=== PATIENT | male | born 1995 | race Caucasian/White ===

== ENCOUNTER 2020-01-26 04:03 | Emergency (ER) | payer BC ==
[2020-01-26] MEDS ORDERED: FLUO10CA14 PO (05:38)
== END 2020-01-26 04:19 | disposition left against medical advice (07) ==
LOC: ER 04:03
DX: R45.851 Suicidal ideations (principal); Z53.21 Procedure and treatment not carried out due to patient leaving prior to being seen by health care provider

== ENCOUNTER 2020-01-26 04:39 | Inpatient (IN) | payer BC ==
[~2020-01-26] VITALS: Ht 180.3 cm; Wt 91.0 kg
[2020-01-26] MEDS ORDERED: FLUO10CA14 PO (05:38)
[2020-01-26] MEDS ORDERED: IV NORMAL SALINE 1,000ML 1,000 ML IV ONE (05:45)
--- NOTE | 2020-01-26 05:48 | PHYS DOC ---
General Adult EDM: Chief Complaint: SUICIDAL IDEATION HPI: HPI: 24-year-old male presents with medication overdose and suicidal ideation. Patient states that he took 30 hydroxyzine tablets at home. He took them because he was arguing with his girlfriend and I was very upset. He does not currently want to commit suicide. He denies taking any other drugs or medications. Review of Systems: Review of Systems: Constitutional: Denies fever or chills Eyes: Denies change in visual acuity HENT: Denies nasal congestion or sore throat Respiratory: Denies cough or shortness of breath Cardiovascular: Denies chest pain or edema GI: Denies abdominal pain, nausea, vomiting, bloody stools or diarrhea : Denies dysuria Musculoskeletal: Denies back pain or joint pain Integument: Denies rash Neurologic: Denies headache, focal weakness or sensory changes Endocrine: Denies polyuria or polydipsia Lymphatic: Denies swollen glands Psychiatric: Suicidal ideation, medication overdose Heart Score: Risk Factors: Risk Factors: DM, Current or recent (<one month) smoker, HTN, HLP, family history of CAD, obesity. Risk Scores: Score 0 - 3: 2.5% MACE over next 6 weeks - Discharge Home Score 4 - 6: 20.3% MACE over next 6 weeks - Admit for Clinical Observation Score 7 - 10: 72.7% MACE over next 6 weeks - Early Invasive Strategies Current Medications: Current Meds: Current Medications Medications (Trade) Dose Ordered Sig/Beverley Start Time Stop Time Status Last Admin Dose Admin Sodium Chloride 1,000 ml @ 1,000 mls/hr 1X ONCE 01/26/20 05:45 01/26/20 06:44 UNV Allergies: Allergies: Allergies Coded Allergies Type Severity Reaction Last Updated Verified Penicillins Allergy Intermediate Hives 01/26/20 Yes amoxicillin Allergy Intermediate Hives 01/26/20 Yes Physical Exam: PE: Constitutional: Well developed, well nourished, no acute distress, non-toxic appearance. [] HENT: Normocephalic, atraumatic, bilateral external ears normal, oropharynx moist, no oral exudates, nose normal. [] Eyes: PERRLA, EOMI, conjunctiva normal, no discharge. [] Neck: Normal range of motion, no tenderness, supple, no stridor. [] Cardiovascular:Heart rate regular rhythm, no murmur [] Lungs & Thorax: Bilateral breath sounds clear to auscultation [] Abdomen: Bowel sounds normal, soft, no tenderness, no masses, no pulsatile masses. [] Skin: Warm, dry, no erythema, no rash. [] Back: No tenderness, no CVA tenderness. [] Extremities: No tenderness, no cyanosis, no clubbing, ROM intact, no edema. [] Neurologic: Alert and oriented X 3, normal motor function, normal sensory function, no focal deficits noted. [] Psychologic: Affect normal, mood normal. [] EKG: EKG: [] Radiology/Procedures: Radiology/Procedures: [] Course & Med Decision Making: Course & Med Decision Making Pertinent Labs and Imaging studies reviewed. (See chart for details) At this point, it seems unlikely that the patient took as many hydroxyzine as he states. His pupils are normal and reactive. He is minimally tired but it is also 5:00 in the morning. The rest of his work-up is pending. I am signing the patient out to Dr. Abrams at 0600. [] Kiran Disclaimer: Kiran Disclaimer: This electronic medical record was generated, in whole or in part, using a voice recognition dictation system. Departure Departure: Disposition: HOME/RESIDENCE PRIOR TO ADM Condition: STABLE Referrals: PCP,JEAN-PAUL (PCP) PUSHPA MICHEL DO January 26, 2020 05:48
[2020-01-26 05:54] LABS: BASO % 0 % (0-3); EOS % 0 % (0-3); HEMATOCRIT 44.9 % (39.0-53.0); HEMOGLOBIN 14.8 g/dL (13.0-17.5); LYMPH # 2.1 x10^3/uL (1.0-4.8); LYMPH % 18 % (24-48); MEAN CORPUSCULAR HEMOGLOBIN 31 pg (25-35); MEAN CORPUSCULAR HGB CONC 33 g/dL (31-37); MEAN CORPUSCULAR VOLUME 92 fL (79-100); MONO # 1.1 x10^3/uL (0.0-1.1); MONO % 10 % (0-9); NEUT # 8.7 x10^3uL (1.8-7.7); NEUT % 72 % (31-73); PLATELET COUNT 313 x10^3/uL (140-400); RED BLOOD COUNT 4.86 x10^6/uL (4.30-5.70); WHITE BLOOD COUNT 12.1 x10^3/uL (4.0-11.0)
[2020-01-26 05:57] LABS: CALCIUM 9.1 mg/dL (8.5-10.1); CREATININE 0.8 mg/dL (0.7-1.3); GFR 119.8; POTASSIUM 3.1 mmol/L (3.5-5.1)
[2020-01-26 06:01] LABS: ACETAMIN < 2.0 mcg/mL (10-30); SALIC 3.8 mg/dL (2.8-20.0)
[2020-01-26 06:02] LABS: ALBUMIN 3.9 g/dL (3.4-5.0); ALBUMIN/GLOBULIN RATIO 1.1 (1.0-1.7); TOTAL BILIRUBIN 0.5 mg/dL (0.2-1.0); TOTAL PROTEIN 7.3 g/dL (6.4-8.2)
[2020-01-26 06:09] LABS: BILIRUBIN,URINE NEG (NEG); CLARITY,URINE CLEAR; COLOR,URINE YELLOW; GLUCOSE,URINE NEG (NEG)
[2020-01-26 06:10] LABS: AMORPHOUS SEDIMENT,UR PRESENT /HPF; BACTERIA,URINE FEW /HPF (0-FEW); NITRITE,URINE NEG (NEG); RBC,URINE 0 /HPF (0-2); SQUAMOUS EPITHELIAL CELL,UR OCC /LPF; UROBILINOGEN,URINE 0.2 mg/dL (0.2 mg/dL); WBC,URINE 0 /HPF (0-4)
[2020-01-26 06:12] LABS: BARBITURATES NEG (NEG); BENZODIAZEPINES NEG (NEG); CANNABINOIDS POS (NEG); COCAINE POS (NEG); METHADONE NEG (NEG); OPIATES NEG (NEG); PHENCYCLIDINE NEG (NEG)
[2020-01-26 06:17] LABS: AMPHETAMINE/METHAMPHETAMINE NEG (NEG)
[2020-01-26] MEDS: IV NORMAL SALINE 1,000ML 1,000 ML IV SCH ×2 (07:06→15:06)
[2020-01-26] MEDS ORDERED: ONDANSETRON PF 4 MG/2 ML VIAL. IVP PRN (07:15)
[2020-01-26 11:00] VITALS: BP 115/72
--- NOTE | 2020-01-26 12:09 | HP ---
ADMIT DATE: 01/26/2020 ATTENDING PHYSICIAN: Dr. Solis. CHIEF COMPLAINT: Suicidal ideation. HISTORY OF PRESENT ILLNESS: The patient is a very pleasant 24-year-old gentleman who got into an argument with his girlfriend. He became somewhat despondent. He took 30 hydroxyzine tablets. He was very sleepy, was in the ED twice. First time, he did not want to come in; second time, he was a little bit unsure. By the time I saw him, he is stable. He was crying just a little bit. He states that he has no suicidal ideations. I believe his affect was adequate. We had a long discussion regarding his behavior in codependency features. PAST MEDICAL HISTORY: Unremarkable for any major illnesses. He is not on any prescription meds. ALLERGIES: He has allergies to PENICILLIN and AMOXICILLIN. SOCIAL HISTORY: He does recreational drugs. His urine drug screen tested positive for cocaine and tetrahydrocannabinol metabolites. No prescription meds. FAMILY HISTORY: He lives with his mom and dad and brother. 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 He has a girlfriend, but he tells me that the relationship is not steady. She has cheated on him and he is somewhat despondent regarding this. REVIEW OF SYSTEMS: The rest of the detailed review of system was determined to be negative. PHYSICAL EXAMINATION: GENERAL: When I saw him, this is a pleasant young man who is alert and oriented. Speech is fluent. He was not obtunded. VITAL SIGNS: His initial vital signs in the ED showed a blood pressure of 130/59, pulse is 88 and regular. He was afebrile, temperature 97.9, oxygen saturation 96% on room air. HEENT: Head is without trauma. Pupils are reactive. Sclerae nonicteric. Oropharynx is clear. NECK: Supple, no bruits identified. LUNGS: Clear. CARDIOVASCULAR: Showed regular heart tones. No gallops, no murmurs. Peripheral pulses palpable and full. ABDOMEN: Soft, scaphoid, nontender. EXTREMITIES: Show no cyanosis. NEUROLOGIC: Focally intact. Speech is fluent. PERTINENT LABORATORY STUDIES: Hemoglobin is normal at 14.8 g/dL with white count of 12,100. Electrolytes within normal range. Urine drug screen was positive for tetrahydrocannabinol as well as cocaine metabolites otherwise clear. ASSESSMENT: 1. A 24-year-old gentleman with suicidal intentions as a gesture. He took an overdose of hydroxyzine. I do not think he took that many pills, he is totally stable right now without any sequelae. 2. Underlying depression with anxiety. 3. Polysubstance abuse. PLAN: 1. We will feed him as scheduled. 2. He will be monitored for vital signs. 3. We will have the case making machine operator come and see him for intake. Should he determine that he does not have suicidal ideations, he can be discharged later this evening. VIANCA SOLIS MD DR: MAR/cirilo JOB#: [id number] / [id number]
[2020-01-26] MEDS ORDERED: POTASSIUM CHLORIDE 20 MEQ TABLET.ER. PO ONE (17:45)
[2020-01-26] MEDS: NICOTINE 21MG PATCH. TD SCH (17:49)
[2020-01-26 17:54] VITALS: BP 113/68
[2020-01-26 23:00] VITALS: BP 116/64
[2020-01-27 05:44] VITALS: BP 108/73
[2020-01-27 06:33] LABS: BASO # 0.1 x10^3/uL (0.0-0.2); BASO % 1 % (0-3); EOS # 0.2 x10^3/uL (0.0-0.7); EOS % 2 % (0-3); HEMATOCRIT 46.4 % (39.0-53.0); HEMOGLOBIN 15.2 g/dL (13.0-17.5); LYMPH # 2.1 x10^3/uL (1.0-4.8); LYMPH % 26 % (24-48); MEAN CORPUSCULAR HEMOGLOBIN 31 pg (25-35); MEAN CORPUSCULAR HGB CONC 33 g/dL (31-37); MEAN CORPUSCULAR VOLUME 93 fL (79-100); MONO # 0.7 x10^3/uL (0.0-1.1); MONO % 9 % (0-9); NEUT # 5.1 x10^3uL (1.8-7.7); NEUT % 63 % (31-73); PLATELET COUNT 290 x10^3/uL (140-400); RED BLOOD COUNT 4.99 x10^6/uL (4.30-5.70); RED CELL DISTRIBUTION WIDTH 14.4 % (11.5-14.5); WHITE BLOOD COUNT 8.1 x10^3/uL (4.0-11.0)
[2020-01-27 06:43] LABS: CALCIUM 9.1 mg/dL (8.5-10.1); CREATININE 0.9 mg/dL (0.7-1.3); GFR 104.6; POTASSIUM 4.7 mmol/L (3.5-5.1)
[2020-01-27] MEDS: NICOTINE 21MG PATCH. TD SCH (08:10)
[2020-01-27] MEDS ORDERED: LORazepam 1 MG TABLET PO PRN ×2 (08:15)
[2020-01-27 11:04] VITALS: BP 108/69
--- NOTE | 2020-01-27 13:28 | DS ---
DATE OF DISCHARGE: 01/27/2020 ATTENDING PHYSICIAN: Dr. Solis. FINAL DISCHARGE DIAGNOSES: 1. Suicide attempt, drug overdose of hydroxyzine. 2. Underlying depression with anxiety. 3. Polysubstance abuse. HISTORY AND PHYSICAL: This 24-year-old gentleman got into an argument with his girlfriend. He became despondent and took an overdose of 30 hydroxyzine tablets. He was very sleepy. He was admitted from the ED. He was tearful. We had a long discussion regarding codependency behaviors. PHYSICAL EXAMINATION: Please see the dictated note. PERTINENT LABORATORY AND X-RAY STUDIES: His urine drug screen was positive for tetrahydrocannabinol and cocaine metabolites. Hemoglobin maintained at 14.8 g/dL with a white count of 8100. Chemistry panel unremarkable, normal BUN and creatinine, electrolytes. Cardiac enzymes were negative. COURSE IN THE HOSPITAL: The patient was admitted. He was medically stable. Diet was advanced. Social Service and returned case inspector came and they did intake. They felt that he would benefit from going to Inpatient Psychiatric Unit. [facility] was contacted. I spoke with one of their physicians on the second hospital day. I told them that he was medically stable, they would take him for inpatient treatment. Therefore, arrangements were made for transportation to [facility] for further care. No prescription medicine at this time. He had a potassium of 3.1 mEq which was replaced to 4.7 mEq/L the next day. VIANCA SOLIS MD DR: MAR/cirilo JOB#: [id number] / [id number]
--- NOTE | 2020-01-27 16:18 | PN ---
DATE: 01/27/2020 SUBJECTIVE: No new complaints. Affect is fair. He had an evaluation yesterday, which recommended inpatient psychiatric care, also ____. They are waiting for a bed. He is not happy. OBJECTIVE FINDINGS: VITAL SIGNS: He is afebrile, blood pressure 108/73, pulse is normal and oxygen saturation 97% on room air. LUNGS: Clear. CARDIOVASCULAR: Showed regular heart tones. ABDOMEN: Soft. EXTREMITIES: Without edema. NEUROLOGIC: Focally intact. ASSESSMENT: 1. A 24-year-old gentleman with suicide attempt. 2. Polysubstance abuse. 3. Underlying depression. PLAN: Recommendations per geriatric social work professor, who felt that he needed inpatient psychiatric care. He wants to go home. We will see what transpires whether a bed is available. VIANCA SOLIS MD DR: MAR/cirilo JOB#: [id number] / [id number]
--- NOTE | 2020-01-28 07:11 | EKG ---
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
== END 2020-01-27 13:00 | DRG 918 ==
LOC: EEVIPCON 04:39 → ER 04:39 → ICU 10:11
PROVIDERS: ADMIT Hospitalist; ATTEND Hospitalist
DX: T43.592A Poisoning by other antipsychotics and neuroleptics, intentional self-harm, initial encounter (principal); F41.8 Other specified anxiety disorders; Y92.89 Other specified places as the place of occurrence of the external cause; Z79.899 Other long term (current) drug therapy; Z88.0 Allergy status to penicillin; Z88.8 Allergy status to other drugs, medicaments and biological substances
CPT/HCPCS: 36415; 80048; 80053; 80307; 80329; 81001; 84484; 85025; 93005; 96360; J2060; 99285-25; G0480; J7030